=== PATIENT | male | born 1980 | race Caucasian/White ===

== ENCOUNTER 2018-10-25 02:04 | Inpatient (IN) | payer OTHER ==
[~2018-10-25] VITALS: Ht 172.7 cm; Wt 123.0 kg
[~2018-10-25 02:04] MED LIST: AMLODIPINE BESY10 M1 PO; ASPIRIN ADULT L81 M5; ASPIRIN325 MG PO; CELEXA10 MG; CITALOPRAM10 M1 PO; CLONIDINE HCL0.2 MG PO; COL100 PO; COZAAR100 MG PO; ECO81 PO; FLONS; HYDROCHLOROTHIA25 MG PO; MYL80 CH; PRILOSEC20 MG PO; TOPROL XL100 MG PO; VITAMIN D32000 I2 PO; ZOFI IV; ZOFI PO
[2018-10-25 02:14] VITALS: Ht 172.7 cm; Wt 123.0 kg
[2018-10-25 03:06] LABS: UA SPECIFIC GRAVITY >=1.030 (1.005-1.035); microscopic required? YES; urine erythrocyte 3+ (NEGATIVE)
[2018-10-25 03:10] LABS: BASOPHIL % 0.1 % (0-2); PLATELET COUNT 274 x10^3mcL (130-400)
[2018-10-25 03:11] LABS: RED CELL DISTRIBUTION WIDTH 14.7 % (11.5-14.5)
[2018-10-25 03:30] LABS: CALCIUM 9.4 mg/dL (8.5-10.1); CARBON DIOXIDE 29.3 mmol/L (21-32); CHLORIDE SERUM 104 mmol/L (98-107); CREATININE SERUM 2.2 mg/dL (0.7-1.3); GFR1 35 mL/min; GLUCOSE SERUM 211 mg/dL (74-106); POTASSIUM SERUM 4.3 mmol/L (3.5-5.1); SODIUM SERUM 147 mmol/L (136-145)
[2018-10-25 03:44] LABS: ALBUMIN 4.2 g/dL (3.4-5.0); ALKALINE PHOSPHATASE 108 U/L (46-116); ALT/SGPT 144 U/L (16-63); AST/SGOT 116 U/L (15-37); BILIRUBIN TOTAL 0.97 mg/dL (0.20-1.00); TOTAL PROTEIN, SERUM 7.9 g/dL (6.4-8.2)
[2018-10-25 04:03] LABS: LIPASE 8133 IU/L (73-393)
[2018-10-25 05:25] VITALS: BP 160/98; BP 167/98
[2018-10-25 05:54] LABS: CHOLESTEROL/HDL RATIO 2.4; MAGNESIUM 1.9 mg/dL (1.8-2.4); PHOSPHOROUS 3.6 mg/dL (2.5-4.9)
[2018-10-25 06:03] LABS: AMPHETAMINE QUAL UR NONE DETECTED (See below)
[2018-10-25 06:51] LABS: ALBUMIN 3.7 g/dL (3.4-5.0); BILIRUBIN DIRECT 0.29 mg/dL (0.0-0.2); BILIRUBIN TOTAL 0.8 mg/dL (0.20-1.00); CALCIUM 8.7 mg/dL (8.5-10.1); CARBON DIOXIDE 22.8 mmol/L (21-32); MAGNESIUM 1.9 mg/dL (1.8-2.4); PHOSPHOROUS 2.5 mg/dL (2.5-4.9); POTASSIUM SERUM 3.8 mmol/L (3.5-5.1); TOTAL PROTEIN, SERUM 7.9 g/dL (6.4-8.2)
[2018-10-25 06:58] LABS: PLATELET COUNT 250 x10^3mcL (130-400)
[2018-10-25 06:59] LABS: RED CELL DISTRIBUTION WIDTH 15.1 % (11.5-14.5)
[2018-10-25 08:41] VITALS: BP 182/108
[2018-10-25 11:27] VITALS: BP 188/107
[2018-10-25 11:48] LABS: BAND NEUTROPHIL 5 % (0-10); BASOPHIL 0 % (0-2); MONOCYTE 3 % (0-7); PLATELET MORPHOLOGY PLATELETS NORMAL; SEGMENTED NEUTROPHILS 89 % (37-75)
[2018-10-25 11:49] LABS: rbc morphology (normal/abnorm) NORMAL (NORMAL)
[2018-10-25 12:24] VITALS: BP 167/102
[2018-10-25 16:14] VITALS: BP 156/98
[2018-10-25 21:33] VITALS: BP 157/100
[2018-10-26 06:04] VITALS: BP 145/92
[2018-10-26 07:33] LABS: PLATELET COUNT 245 x10^3mcL (130-400)
[2018-10-26 08:16] LABS: CALCIUM 8.6 mg/dL (8.5-10.1); CARBON DIOXIDE 28.9 mmol/L (21-32); CREATININE SERUM 1.9 mg/dL (0.7-1.3); POTASSIUM SERUM 3.9 mmol/L (3.5-5.1)
[2018-10-26 09:14] LABS: RED CELL DISTRIBUTION WIDTH 15.2 % (11.5-14.5)
[2018-10-26 11:15] VITALS: BP 105/69
[2018-10-26 14:18] LABS: BAND NEUTROPHIL 7 % (0-10); MONOCYTE 7 % (0-7); SEGMENTED NEUTROPHILS 82 % (37-75)
[2018-10-26 14:19] LABS: PLATELET MORPHOLOGY LARGE PLATELET SEEN; rbc morphology (normal/abnorm) NORMAL (NORMAL)
[2018-10-26 16:10] VITALS: BP 148/83
[2018-10-26 19:57] LABS: PLATELET COUNT 215 x10^3mcL (130-400)
[2018-10-26 20:18] LABS: RED CELL DISTRIBUTION WIDTH 15.3 % (11.5-14.5)
[2018-10-26 20:31] LABS: BAND NEUTROPHIL 3 % (0-10); MONOCYTE 3 % (0-7); SEGMENTED NEUTROPHILS 88 % (37-75)
[2018-10-26 20:32] LABS: PLATELET MORPHOLOGY PLATELETS NORMAL; rbc morphology (normal/abnorm) NORMAL (NORMAL)
[2018-10-26 21:47] VITALS: BP 144/91
[2018-10-27 04:50] VITALS: BP 140/88
[2018-10-27 06:37] LABS: BILIRUBIN TOTAL 1.46 mg/dL (0.20-1.00); CALCIUM 8.8 mg/dL (8.5-10.1); CARBON DIOXIDE 28.3 mmol/L (21-32); MAGNESIUM 2.2 mg/dL (1.8-2.4); POTASSIUM SERUM 4.1 mmol/L (3.5-5.1); TOTAL PROTEIN, SERUM 7.2 g/dL (6.4-8.2)
[2018-10-27 06:38] LABS: ALBUMIN 2.8 g/dL (3.4-5.0)
[2018-10-27 07:45] LABS: BASOPHIL % 0.2 % (0-2); PLATELET COUNT 214 x10^3mcL (130-400); RED CELL DISTRIBUTION WIDTH 14.2 % (11.5-14.5)
[2018-10-27 09:20] VITALS: BP 176/112
[2018-10-27 13:43] VITALS: BP 148/99
[2018-10-27 17:49] VITALS: BP 143/82
[2018-10-27 19:45] VITALS: BP 135/85
[2018-10-28 04:37] VITALS: BP 145/92
[2018-10-28 07:04] LABS: BASOPHIL % 0.1 % (0-2); PLATELET COUNT 185 x10^3mcL (130-400); RED CELL DISTRIBUTION WIDTH 14.4 % (11.5-14.5)
[2018-10-28 07:05] LABS: BILIRUBIN TOTAL 1.2 mg/dL (0.20-1.00); CALCIUM 8.5 mg/dL (8.5-10.1); CARBON DIOXIDE 26.2 mmol/L (21-32); MAGNESIUM 2.3 mg/dL (1.8-2.4); POTASSIUM SERUM 3.6 mmol/L (3.5-5.1); TOTAL PROTEIN, SERUM 6.5 g/dL (6.4-8.2)
[2018-10-28 07:08] LABS: ALBUMIN 2.5 g/dL (3.4-5.0)
[2018-10-28 08:25] VITALS: BP 146/91
[2018-10-28 12:25] VITALS: BP 146/93
[2018-10-28] MEDS ORDERED: NORCO1 TA2 PO (13:12)
[2018-10-28 14:32] VITALS: BP 146/93
== END 2018-10-28 16:25 | disposition home or self-care (01) | DRG 417 ==
LOC: ED 02:04 → DU 04:39 → ED 05:00 → DU 05:04 → MU 10-28 09:56
PROVIDERS: Emergency Medicine; ADMIT Internal Medicine
PROC: 0FT44ZZ Resection of Gallbladder, Percutaneous Endoscopic Approach (ICD-10-PCS; principal; 2018-10-25)
PROC: BF131ZZ Fluoroscopy of Gallbladder and Bile Ducts using Low Osmolar Contrast (ICD-10-PCS; 2018-10-25)
DX: K85.10 Biliary acute pancreatitis without necrosis or infection (principal); N17.0 Acute kidney failure with tubular necrosis; E43 Unspecified severe protein-calorie malnutrition; Z68.41 Body mass index [BMI] 40.0-44.9, adult; E87.0 Hyperosmolality and hypernatremia; K80.62 Calculus of gallbladder and bile duct with acute cholecystitis without obstruction; K21.9 Gastro-esophageal reflux disease without esophagitis; E78.5 Hyperlipidemia, unspecified; K66.0 Peritoneal adhesions (postprocedural) (postinfection); E66.01 Morbid (severe) obesity due to excess calories; I16.0 Hypertensive urgency; F41.9 Anxiety disorder, unspecified; F32.9 Major depressive disorder, single episode, unspecified; E78.00 Pure hypercholesterolemia, unspecified; E86.0 Dehydration; I12.9 Hypertensive chronic kidney disease with stage 1 through stage 4 chronic kidney disease, or unspecified chronic kidney disease; N18.9 Chronic kidney disease, unspecified
CPT/HCPCS: C9113; J0690; J1170; J1885; J2060; J2270; J2405; J2543; J3010; J3490; J7030; J7120; Q0092; Q9967